=== PATIENT | male | born 1935 | race Caucasian/White ===

== ENCOUNTER → 2020-05-04 13:26 | Outpatient (CLI) | payer MEDICARE, SELFPAY ==
--- NOTE | 2020-05-04 13:45 | RAD_ITS ---
STUDY: X-RAY - LUMBAR SPINE REASON FOR EXAM: Male, 84 years old. Pain, radiating into legs TECHNIQUE: 3 view(s) of the lumbar spine were obtained. COMPARISON: None FINDINGS: No acute fracture, dislocation or osseous destruction. Osteopenia. Levoscoliosis. Exaggerated lordosis. Grade 1 spondylolisthesis at L1-2, L2-3 and L5-S1. Multilevel moderate/severe endplate spondylosis. Multilevel moderate/severe disc height loss. Anterior osteophytes. Multilevel moderate/severe facet arthrosis. Vascular calcifications. Constipation. RAD/Lumbar Spine 2 or 3 Views IMPRESSION: Lumbar spine acutely intact Moderate/severe osteoarthritic with levoscoliosis and exaggerated lordosis Multilevel grade 1 spondylolisthesis Electronically Signed: Trevor Berumen DO at 11:13 EST Tel , Service support ,
== END ==
PROVIDERS: PCP Internal Medicine; Referring Provider Anesthesiology Pain Medicine; Visit Provider Anesthesiology Pain Medicine
DX: M54.5 Low back pain (principal); M79.606 Pain in leg, unspecified
CPT/HCPCS: 72100

== ENCOUNTER 2021-03-12 18:25 | Inpatient (IN) | payer MEDICARE, SELFPAY ==
[2021-03-12 18:25] VITALS: BP 122/70; PULSE 78; RESP 18; TEMP 36.1; O2SAT 88
[2021-03-12 18:27] VITALS: BP 122/70; PULSE 78; RESP 18; TEMP 36.1; O2SAT 88; BMI 34.9
[2021-03-12 18:49] VITALS: BP 131/71; PULSE 75; RESP 25; O2SAT 94
--- NOTE | 2021-03-12 18:58 | RAD_ITS ---
INDICATION: cough EXAMINATION/TECHNIQUE: X-RAY - XR Chest 1 View COMPARISON: None. FINDINGS: Patchy opacities in the bilateral lungs. Tortuous and calcified thoracic aorta. The heart is mildly enlarged. No pleural effusion or pneumothorax. Degenerative changes of the thoracic spine. RAD/Chest 1 View (Portable) IMPRESSION: Patchy bilateral opacities concerning for infection and/or edema. Electronically Signed: Lux Jorge MD at 20:13 EDT Tel , Service support ,
--- NOTE | 2021-03-12 18:59 | EKG12_ITS ---
Test Reason : DYSRHYTHMIA Blood Pressure : / mmHG Vent. Rate : 077 BPM Atrial Rate : 077 BPM P-R Int : 152 ms QRS Dur : 100 ms QT Int : 396 ms P-R-T Axes : 031 -42 016 degrees QTc Int : 448 ms Normal sinus rhythm Left axis deviation Abnormal ECG Confirmed by BELEM SANTANA, MARIO ([id number]), clinical editor GM SMITH ([id number]) on 03/16/2021 8:39:27 AM Referred By: CAMERON Confirmed By:MARIO PATRICIA MD
--- NOTE | 2021-03-12 19:00 | EX.ED.DYSGE1 ---
HPI History of Present Illness Chief Complaint: Weakness Detail of Chief Complaint: Weakness that started 10 days ago Informant: patient Narrative Narrative: Patient presents to the emergency department complaint of generalized weakness. Patient states that is significant other that lives with them had Covid recently. Patient complains of a cough and some diarrhea that he had several days ago that is now resolved. Patient has no energy. Patient's had intermittent fevers. He has some mild shortness of breath. He denies any chest pain. Prior similar symptoms: No PFSH [facility] Medical History (Updated 03/12/21 @ 21:[address] Michelle Hayes, DO) Hypertension Allergy/AdvReac Type Severity Reaction Status Date / Time No Known Allergies Allergy Verified 03/12/21 18:32 Social History Smoking Status: Former smoker ROS ROS ED Constitutional Constitutional ED: Reports systems reviewed and no addt'l complaints, except as documented; Denies body ache(s), change in weight or chills Eyes Eyes: Denies acute decrease in peripheral vision, change in vision, double vision or loss of vision ENT ENT ED: Reports none; Denies ear pain, lip swelling, loss taste/smell, neck pain, otalgia or sore throat Cardiovascular Cardiovascular: Reports none; Denies abdominal pain, chest pain with activity, leg edema, lightheadedness, palpitations, rapid heart rate or syncope Respiratory/Chest Respiratory/Chest: Reports none and cough; Denies change in mental status, dry cough, dyspnea, hemoptysis, shortness of breath at rest or shortness of breath with exertion Gastrointestinal Gastrointestinal: Reports none and diarrhea; Denies abdominal pain, change in stool character, hematemesis, hematochezia, melena, rectal bleeding or vomiting Genitourinary Genitourinary ED: Reports none; Denies abdominal discomfort, anuria, dysuria, genital pain or polyuria Musculoskeletal Musculoskeletal: Reports none; Denies arthralgias, back pain, difficulty walking, extremity pain, muscle weakness or myalgias Integumentary Reports none; Denies abscess or rash Neurologic Neurologic: Reports none and weakness; Denies abnormal gait, confusion, focal weakness, frequent falls, headache(s), loss of vision, numbness, paresthesias, radicular pain or vertigo Psychiatric Psychiatric: Reports systems reviewed and no addt'l complaints, except as documented and none; Denies behavioral changes, confusion, difficulty concentrating, hallucinations, suicidal ideation, tactile hallucinations or visual hallucinations Endocrine Endocrinology: Denies none, cold intolerance, excessive sweating, fatigue or heat intolerance Hematologic/Lymphatic Hematologic/Lymphatic: Reports none; Denies anemia, easy bleeding or easy bruising Allergic/Immunologic Allergic/Immunologic ED: Denies as per HPI, none, lip swelling, mouth swelling, throat swelling, tongue swelling or hives EXAM Physical Exam Const Vital Signs: 03/12/21 18:25 03/12/21 18:27 03/12/21 18:44 Temperature 97.0 F L 97.0 F L Temperature Source Temporal Temporal Pulse Rate 78 78 Respiratory Rate 18 18 Respiratory Pattern Tachypnea Blood Pressure 122/70 H 122/70 H Blood Pressure Mean 87 87 Pulse Ox 88 88 Oxygen Delivery Method Room Air Room Air Oxygen Flow Rate (L/min) 03/12/21 18:49 03/12/21 20:15 03/12/21 22:00 Temperature 98.9 F 99.4 F H Temperature Source Oral Oral Pulse Rate 75 80 82 Respiratory Rate 25 H 20 H 18 Respiratory Pattern Blood Pressure 131/71 H 142/77 H 126/75 H Blood Pressure Mean 91 98 92 Pulse Ox 94 95 91 Oxygen Delivery Method Nasal Cannula Nasal Cannula Nasal Cannula Oxygen Flow Rate (L/min) 4 4 4 Positive well nourished and well developed General Appearance ED: well developed and NAD HEENT Reports TM's clear and moist mucous membranes normocephalic and atraumatic; Negative for trauma or tenderness Tympanic Membrane ED: Yes TM's clear Eyes PERRL and EOMs intact bilaterally General Eye ED: Negative for pale conjunctiva or scleral icterus Neck no lymphadenopathy, supple and no JVD General: Negative for tenderness Chest Wall inspection of chest normal and palpation of chest normal Chest: Negative for tenderness Resp normal respiratory effort and clear to auscultation bilaterally Effort and Inspection: Negative for respiratory distress or pain with movement Auscultation: Negative for rhonchi, wheezes or diminished lung sounds Cardio regular rate, regular rhythm, S1 normal heart sound, S2 normal heart sound and no murmurs Peripheral Pulses: pulses 2+ throughout GI normal to inspection, nondistended, normoactive bowel sounds, soft to palpation, non-tender, non-distended and no masses Back/Spine no CVA tenderness and no thoracic nor lumbar tenderness Extremity normal to inspection General Extremety ED: Negative for edema General Extremity: Negative for edema Neuro oriented x3, CN's II-XII intact bilaterally, no sensory deficits noted and gait normal Sensorium / Orientation: awake, alert, oriented to person, oriented to place and oriented to time Motor Exam: strength 5/5 throughout and strength abnormal Psych mental status grossly normal Skin no rashes or lesions noted and no wounds MDM MDM MDM Narrative Medical decision making narrative: Established. Patient given normal saline. Patient required 2 nurses to help him get in the bed from a wheelchair. Case discussed with hospitalist will evaluate patient for admission for generalized weakness related to his COVID-19 infection. CTA was negative for PE. Patient would be comfortable with placement to rehab facility potentially as he is having a hard time caring for himself at this time. Lab Data Attestation: I reviewed the patient's lab results. Labs: Laboratory Results - last 24 hr 03/12/21 03/12/21 03/12/21 18:43 18:43 18:43 WBC 7.9 RBC 4.55 L Hgb 14.1 Hct 41.7 MCV 91.6 MCH 31.0 MCHC 33.8 RDW Std Deviation 47.6 H RDW Coeff of [place] 14.1 Plt Count 162 MPV 12.4 H Immature Gran % (Auto) 0.800 Neut % (Auto) 73.5 H Lymph % (Auto) 17.2 L [place] % (Auto) 7.8 Eos % (Auto) 0.3 Baso % (Auto) 0.4 Absolute Neuts (auto) 5.8 Absolute Lymphs (auto) 1.36 Nucleated RBC % 0 Platelet Estimate ADEQUATE RBC Morphology NORM C+C D-Dimer Quant (PE/DVT) 2.10 H* Sodium 129 L Potassium 4.4 Chloride 96 L Carbon Dioxide 29.0 Anion Gap 4 L BUN 16 Creatinine 1.04 Estim Creat Clear Calc 51.93 Est GFR (MDRD) Af Amer 87 Est GFR (MDRD) Non-Af 72 BUN/Creatinine Ratio 15.4 Glucose 104 Calcium 8.8 Troponin I High Sens 24 Radiography Chest X-Ray - ED: 1 View Diagnostic Testing: Clinical Impression(s) from Imaging Studies Chest X-Ray 03/12/21 18:58 IMPRESSION: Patchy bilateral opacities concerning for infection and/or edema. Electronically Signed: Lux Jorge MD at 20:13 EDT Tel , Service support , Chest CTA 03/12/21 20:31 IMPRESSION: 1. No pulmonary embolism 2.. Bilateral diffuse peripheral patchy groundglass airspace disease concerning for pneumonia, compatible with atypical viral pneumonia in the appropriate setting. 3. Bilateral hilar and mild mediastinal reactive adenopathy. Individualized dose optimization techniques were used for this CT. at 2146 Reported and signed by: Frank Kumar MD Electronically Signed: Frank Kumar MD at 21:44 EDT Tel , Service support , 1 view chest x-ray obtained interpreted by myself as bilateral infiltrates. Radiology in agreement. EKG Initial EKG: Attestation: I personally reviewed and interpreted this EKG as follows: Comments: Sinus rhythm with a ventricular rate of 77 bpm with no acute ST segment changes Discharge Plan Dx/Rx/DC Orders Clinical Impression: COVID-19, Weakness Disposition Disposition: Acute Care Hospital [facility]
[2021-03-12 19:10] LABS: Absolute Lymphocyte Count 1.36 X10^3/uL (0.83-4.51); Absolute Neutrophil Count 5.8 X10^3/uL (2.0-7.7); Basophil# 0.03 X10^3/uL; Basophil% 0.4 % (0-1); Eosinophil# 0.02 X10^3/uL; Eosinophils% 0.3 % (0-5); Hematocrit 41.7 % (40-54); Hemoglobin 14.1 g/dL (13.0-16.5); Lymphocyte # 1.36 X10^3/ul (0.83-4.51); Lymphocyte % 17.2 % (19-41); Mean Corp Hgb Conc 33.8 g/dL (32-36); Mean Corpuscular Volume 91.6 fL (80-94); Mean Platelet Vol. 12.4 fl (6.2-12.0); Monocyte# 0.62 X10^3/uL; Monocyte% 7.8 % (0-10); NRBC Flagged by Analyzer 0 % (0-5); Neutrophil # 5.82 X10^3/uL (2.7-7.7); Neutrophil % 73.5 % (47-70); POSITIVE MORPHOLOGY YES; Platelet Count 162 K/mm3 (150-450); RBC Distribution Width CV 14.1 % (11.6-14.6); RBC Distribution Width SD 47.6 fl (35.1-43.9); Red Blood Count 4.55 M/mm3 (4.6-6.2); White Blood Count 7.9 K/mm3 (4.4-11.0)
[2021-03-12 19:14] LABS: Differential Indicated SCAN CRITERIA MET
[2021-03-12 19:28] LABS: Anion Gap 4 (5-15); BUN 16 mg/dL (7-18); BUN/Creat Ratio 15.4 RATIO (10-20); Calcium,Total 8.8 mg/dL (8.5-10.1); Chloride 96 mmol/L (98-107); Creatinine, Serum 1.04 mg/dL (0.70-1.30); EST Glomerular Filtration Rate 72 mL/min (>60); Est Glom Filt Rate - Afr Amer 87 mL/min (>60); Estimated Creatinine Clearance 51.93 ml/min; Glucose 104 mg/dL (74-106); Potassium 4.4 mmol/L (3.5-5.1); Sodium Level 129 mmol/L (136-145); Troponin-I HS 24 pg/mL (3.0-78.0)
[2021-03-12] MEDS: 0.9% Normal Saline 1,000 ML 150 ML IV (19:36)
[2021-03-12 19:57] LABS: Platelet Estimate ADEQUATE (ADEQ); Red Cell Morphology NORM C+C NORMAL (NORM C&C)
[2021-03-12 20:15] VITALS: BP 142/77; PULSE 80; RESP 20; TEMP 37.2; O2SAT 95
--- NOTE | 2021-03-12 20:31 | CT_ITS ---
HISTORY: elevated d-dimer TECHNIQUE: Helically acquired images were obtained of the chest following 100mL Isovue-370 IV contrast as per pulmonary angiogram protocol with 3D reconstructions. A radiation dose optimization technique was used for this scan. COMPARISON: Chest radiograph on same day FINDINGS: # of images incl. paperwork: [id number] THYROID IMAGED PORTION: Unremarkable. PULMONARY ARTERIES: No pulmonary embolism. No gross arterial enlargement. AORTA/AORTIC ARCH: Mild atherosclerosis. Ascending aortic ectasia to 4.5 cm. Aortic tortuosity. No dissection. HEART/PERICARDIUM: No cardiomegaly. No significant pericardial fluid. ADENOPATHY: Subcentimeter reactive bilateral hilar lymph nodes and few scattered mediastinal lymph nodes are present. LUNG PARENCHYMA: Patchy bilateral groundglass airspace opacities throughout the lung periphery. Mild bilateral peribronchial thickening. Basilar bronchiectasis. PLEURAL EFFUSION: None. PNEUMOTHORAX: None. UPPER ABDOMEN IMAGED PORTION: Minimal hiatal hernia. Unremarkable. MUSCULOSKELETAL: No acute osseous finding. CT/CTA Chest W/WO Contrast IMPRESSION: 1. No pulmonary embolism 2.. Bilateral diffuse peripheral patchy groundglass airspace disease concerning for pneumonia, compatible with atypical viral pneumonia in the appropriate setting. 3. Bilateral hilar and mild mediastinal reactive adenopathy. Individualized dose optimization techniques were used for this CT. at 2146 Reported and signed by: Frank Kumar MD Electronically Signed: Frank Kumar MD at 21:44 EDT Tel , Service support ,
[2021-03-12 22:00] VITALS: BP 126/75; PULSE 82; RESP 18; TEMP 37.4; O2SAT 91
--- NOTE | 2021-03-12 22:07 | HP.PCM.HOS_ITS ---
[facility] - General General Date of Admission: 03/12/21 HPI Narrative FRAGOSO TATUM, is a 85 M with a significant history of CAD status post stent who presents to the emergency department with a 10-day history of progressively worsening weakness. It has been difficult for patient to walk and he has required a walker. Patient had diarrhea which had resolved. Patient has shortness of breath and cough. Patient has poor appetite. He had diarrhea which has improved. [facility] Medical History Chest pain Chronic pain Coronary artery disease Former smoker Hearing loss, left Hearing loss, right Hypertension Wears hearing aid in both ears Home Medications carvedilol 3.125 mg PO BID 03/13/21 [History Last Taken 03/11/21 23:00] Allergy/AdvReac Type Severity Reaction Status Date / Time No Known Allergies Allergy Verified 03/12/21 18:32 Family History (Updated 03/13/21 @ 03:[address] Antonio Marrero MD) Other Dementia Surgical History (Updated 03/13/21 @ 00:21 by Hilary Mckoy) History of coronary artery stent placement Social History Smoking Status: Former smoker ROS ROS Narrative Constitutional: Reports fatigue. Reports anorexia. Denies fever, chills, fatigue, and change in weight Eyes: Denies blurry vision, change in eye color, change in vision, discharge from eye(s), double vision, erythema, eye pain, loss of vision or other HEENT: Denies abnormal hearing, dysphagia, ear pain, epistaxis, headache(s), hearing loss, nasal congestion, nasal discharge, post nasal drip, sinus pressure, sore throat or other Cardiovascular: Denies chest pain or palpitations. Respiratory/Chest: Reports shortness of breath and cough. Denies wheezing Gastrointestinal: Denies abdominal pain, coffee ground emesis, constipation, diarrhea, dyspepsia, hematemesis, hematochezia, loose stools, melena, nausea, vomiting or other Genitourinary: Denies burning urination, difficulty urinating, dysuria, olga lidia turia, nocturia, urinary frequency, urinary hesitancy, urinary incontinence, urinary urgency or other Musculoskeletal: Denies arthralgias, back pain, joint pain, joint stiffness, joint swelling, myalgias, neck pain or other Neurologic: Denies abnormal gait, abnormal speech, confusion, disequilibrium, dizziness, focal weakness, headache(s), numbness, paresthesias, seizure-like activity, seizures, syncope, tingling, tremor(s) or other Psychiatric: Denies anxiety, depression, homicidal ideation, suicidal ideation or other Endocrinology: Denies change in body appearance, cold intolerance, excessive sweating, heat intolerance, polydipsia, polyuria or other Hematologic/Lymphatic: Denies anemia, easy bleeding, easy bruising, lymphadenopathy or other Integumentary: Denies rashes Allergic/Immunologic: Denies rhinitis, hives, eczema, asthma or other Vital Signs Vital Signs Vital Signs: 03/12/21 18:25 03/12/21 18:27 03/12/21 18:44 Temperature 97.0 F L 97.0 F L Temperature Source Temporal Temporal Pulse Rate 78 78 Respiratory Rate 18 18 Respiratory Pattern Tachypnea Blood Pressure 122/70 H 122/70 H Blood Pressure Mean 87 87 Pulse Ox 88 88 Oxygen Delivery Method Room Air Room Air Oxygen Flow Rate (L/min) 03/12/21 18:49 03/12/21 20:15 03/12/21 22:00 Temperature 98.9 F 99.4 F H Temperature Source Oral Oral Pulse Rate 75 80 82 Respiratory Rate 25 H 20 H 18 Respiratory Pattern Blood Pressure 131/71 H 142/77 H 126/75 H Blood Pressure Mean 91 98 92 Pulse Ox 94 95 91 Oxygen Delivery Method Nasal Cannula Nasal Cannula Nasal Cannula Oxygen Flow Rate (L/min) 4 4 4 Weight Weight: 107.27 kg Body Mass Index (BMI) 34.9 Physical Exam Narrative Physical exam: General: Well-nourished, well-developed. Head: Normocephalic, atraumatic, no tenderness Eyes: PERRLA, EOMI ENT, no trauma, moist mucous membranes, no rhinorrhea Neck: Nontender, full range of motion, no spinal tenderness, deformities, step- off CVS: Regular rate and rhythm. S1-S2 present. No murmur, gallop or rub. Respiratory : clear to auscultation bilaterally, chest wall nontender, no wheezing Abdomen: Soft, nontender, nondistended, normal bowel sounds, no masses : Deferred Back: Nontender, no CVA tenderness, no midline spinal tenderness, deformities, step-offs Extremities: Nontender full range of motion, no trauma Skin: Normal color, no trauma, abrasions Neuro: Alert, oriented, cranial nerves II through XII grossly intact. Psychiatry: Normal mood. Normal affect. Not depressed. Not anxious. Results Lab / Micro Data Result Diagrams: 03/12/21 18:43 03/12/21 18:43 Labs: Laboratory Results - last 24 hr 03/12/21 18:43: WBC 7.9, RBC 4.55 L, Hgb 14.1, Hct 41.7, MCV 91.6, MCH 31.0, MCHC 33.8, RDW Std Deviation 47.6 H, RDW Coeff of [place] 14.1, Plt Count 162, MPV 12.4 H, Immature Gran % (Auto) 0.800, Neut % (Auto) 73.5 H, Lymph % (Auto) 17.2 L, [place] % (Auto) 7.8, Eos % (Auto) 0.3, Baso % (Auto) 0.4, Absolute Neuts (auto) 5.8, Absolute Lymphs (auto) 1.36, Nucleated RBC % 0, Platelet Estimate ADEQUATE, RBC Morphology NORM C+C 03/12/21 18:43: D-Dimer Quant (PE/DVT) 2.10 H* 03/12/21 18:43: Sodium 129 L, Potassium 4.4, Chloride 96 L, Carbon Dioxide 29.0, Anion Gap 4 L, BUN 16, Creatinine 1.04, Estim Creat Clear Calc 51.93, Est GFR (MDRD) Af Amer 87, Est GFR (MDRD) Non-Af 72, BUN/Creatinine Ratio 15.4, Glucose 104, Calcium 8.8, Troponin I High Sens 24 Micro: Microbiology 03/12/21 19:10 Nasal Secretion SARS-CoV-2 Antigen (Rapid) - Final SARS-CoV-2 (COVID 19) Radiology Impression Chest X-Ray 03/12/21 18:58 IMPRESSION: Patchy bilateral opacities concerning for infection and/or edema. Electronically Signed: Lux Jorge MD at 20:13 EDT Tel , Service support , Chest CTA 03/12/21 20:31 IMPRESSION: 1. No pulmonary embolism 2.. Bilateral diffuse peripheral patchy groundglass airspace disease concerning for pneumonia, compatible with atypical viral pneumonia in the appropriate setting. 3. Bilateral hilar and mild mediastinal reactive adenopathy. Individualized dose optimization techniques were used for this CT. at 2146 Reported and signed by: Frank Kumar MD Electronically Signed: Frank Kumar MD at 21:44 EDT Tel , Service support , Assessment & Plan Assessment/Plan (1) COVID-19: (2) Weakness: (3) Pneumonia due to COVID-19 virus: PLAN: Acute hypoxemic respiratory failure secondary to SARS- COV 2 Saturation of 88% on room air requiring supplemental oxygen. Will continue supplemental oxygen. Reportedly her oxygen chest x-ray image and CTA image was independently interpreted and I agree with radiologist interpretation above. D-dimer was elevated at 2.10. Positive rapid Covid antigen test. Decadron ordered. AST mildly elevated at 65. ALT is normal. Direct bili and total bili is elevated. No previous LFTs to compare with. Albumin is low at 2.9. Patient is outside window for remdesivir. Tylenol for fever Tessalon Perles as needed. Debility secondary to Covid PT and OT to work with patient. automation and controls manager consult for disposition. 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 Gentle IV hydration. Fluid restriction ordered. Trend BMP. Hypertension Blood pressure is stable in regard to his age. Carvedilol continued.. Trend blood pressure and adjust blood pressure medications. Due to prophylaxis: SCD ordered. Charges/Coding Visit Charges OBSV E&M: 00071 Initial observation care L3
[2021-03-12 23:45] LABS: AST(SGOT) 65 U/L (15-37); Alanine Aminotransfer ALT/SGPT 36 U/L (16-61); Albumin, Serum 2.9 g/dL (3.2-5.0); Alkaline Phosphatase 48 U/L (45-117); Bilirubin, Direct 0.51 mg/dL (0.00-0.30); Globulin 4.9 g/dL (2.2-4.2); Protein, Total 7.8 g/dL (6.4-8.2)
[2021-03-13] VITALS (10 sets, daily range): BP systolic 122–149; BP diastolic 67–81; PULSE 72–85; RESP 16–20; TEMP 36.2–37.6; O2SAT 92–95; BMI 34.7
[2021-03-13] MEDS: 0.9% Normal Saline 1,000 ML 75 ML IV (01:14)
[2021-03-13] MEDS: dexAMETHasone 2 MG TABLET 6 MG PO ×2 (01:20→09:58)
[2021-03-13 08:23] LABS: Anion Gap 7 (5-15); BUN 11 mg/dL (7-18); BUN/Creat Ratio 12.2 RATIO (10-20); Chloride 100 mmol/L (98-107); EST Glomerular Filtration Rate 85 mL/min (>60); Est Glom Filt Rate - Afr Amer 103 mL/min (>60); Estimated Creatinine Clearance 60.01 ml/min; Glucose 84 mg/dL (74-106); Potassium 3.8 mmol/L (3.5-5.1); Sodium Level 135 mmol/L (136-145)
--- NOTE | 2021-03-13 09:54 | PCS.PANDOC ---
PANDEMIC DOCUMENTATION INITIATED: Date: 01/11/2021 Time: 190
[2021-03-13] MEDS: Enoxaparin 30 MG/0.3 ML Syringe SC ×2 (09:58→23:06)
[2021-03-13] MEDS: Carvedilol 3.125 MG TABLET PO ×2 (09:58→23:06)
--- NOTE | 2021-03-13 11:48 | PCM.PN.HOSP ---
Subjective Subjective Feels about the same, oxygen requirement is from 5 L to 3 L. Objective Data Objective Data Vital Signs: Vital Signs Temp Pulse Resp BP Pulse Ox 97.2 F L 78 18 122/71 H 92 03/13/21 09:52 03/13/21 09:52 03/13/21 09:52 03/13/21 09:52 03/13/21 11:19 Oxygen Flow Rate (L/min) 3 Oxygen Delivery Method Nasal Cannula Weight: 235 lb 0.204 oz Body Mass Index (BMI) 34.7 Intake & Output: Intake and Output for Last 24 Hours 03/12/21 03/13/21 03/14/21 03:59 03:59 03:59 Intake Total 860 / 860 Output Total 425 / 425 600 / 600 Balance 435 / 435 -600 / -600 Lab / Micro Data Result Diagrams: 03/12/21 18:43 03/13/21 06:45 Labs: Laboratory Results - last 24 hr 03/12/21 18:43: WBC 7.9, RBC 4.55 L, Hgb 14.1, Hct 41.7, MCV 91.6, MCH 31.0, MCHC 33.8, RDW Std Deviation 47.6 H, RDW Coeff of [place] 14.1, Plt Count 162, MPV 12.4 H, Immature Gran % (Auto) 0.800, Neut % (Auto) 73.5 H, Lymph % (Auto) 17.2 L, [place] % (Auto) 7.8, Eos % (Auto) 0.3, Baso % (Auto) 0.4, Absolute Neuts (auto) 5.8, Absolute Lymphs (auto) 1.36, Nucleated RBC % 0, Platelet Estimate ADEQUATE, RBC Morphology NORM C+C 03/12/21 18:43: D-Dimer Quant (PE/DVT) 2.10 H* 03/12/21 18:43: Sodium 129 L, Potassium 4.4, Chloride 96 L, Carbon Dioxide 29.0, Anion Gap 4 L, BUN 16, Creatinine 1.04, Estim Creat Clear Calc 51.93, Est GFR (MDRD) Af Amer 87, Est GFR (MDRD) Non-Af 72, BUN/Creatinine Ratio 15.4, Glucose 104, Calcium 8.8, Troponin I High Sens 24 03/12/21 18:43: Total Bilirubin 1.30 H, Direct Bilirubin 0.51 H, AST 65 H, ALT 36, Alkaline Phosphatase 48, Total Protein 7.8, Albumin 2.9 L, Globulin 4.9 H 03/13/21 06:45: Sodium 135 L, Potassium 3.8, Chloride 100, Carbon Dioxide 28.0, Anion Gap 7, BUN 11, Creatinine 0.90, Estim Creat Clear Calc 60.01, Est GFR (MDRD) Af Amer 103, Est GFR (MDRD) Non-Af 85, BUN/Creatinine Ratio 12.2, Glucose 84, Calcium 8.0 L Micro: Microbiology 03/12/21 19:10 Nasal Secretion SARS-CoV-2 Antigen (Rapid) - Final SARS-CoV-2 (COVID 19) Radiography Diagnostic Testing: Radiology Impression Chest X-Ray 03/12/21 18:58 IMPRESSION: Patchy bilateral opacities concerning for infection and/or edema. Electronically Signed: Lux Jorge MD at 20:13 EDT Tel , Service support , Chest CTA 03/12/21 20:31 IMPRESSION: 1. No pulmonary embolism 2.. Bilateral diffuse peripheral patchy groundglass airspace disease concerning for pneumonia, compatible with atypical viral pneumonia in the appropriate setting. 3. Bilateral hilar and mild mediastinal reactive adenopathy. Individualized dose optimization techniques were used for this CT. at 2146 Reported and signed by: Frank Kumar MD Electronically Signed: Frank Kumar MD at 21:44 EDT Tel , Service support , Physical Exam Const alert, oriented x3 and no apparent distress General Appearance: cooperative HEENT normocephalic and moist oral mucous membranes Eyes PERRL, EOMs intact bilaterally and conjunctivae normal Neck supple and no JVD Resp normal respiratory effort, no retractions, no use of accessory muscles and clear to auscultation bilaterally Auscultation: Negative for crackles, rales, rhonchi or wheezes Cardio regular rate, regular rhythm, S1 normal heart sound, S2 normal heart sound and no murmurs GI soft to palpation, non-tender and non-distended; Negative for hepatosplenomegaly Extremity no clubbing, cyanosis or edema Skin no rashes or lesions noted Neuro no focal motor deficits and no sensory deficits noted Psych affect normal Appearance: appropriate Assessment & Plan Assessment/Plan (1) COVID-19: (2) Weakness: (3) Pneumonia due to COVID-19 virus: PLAN: 1. Acute hypoxic respiratory failure secondary to COVID-19 pneumonia/generalized weakness -Symptoms started 11 days ago therefore he is also under baricitinib and remdesivir continue with Decadron -CTA was negative for PE -PT/OT -continue with pulmonary toileting -Quarantine will be completed 03/22/2021 2. HTN -Blood pressure stable -Continue with Coreg DVT: Lovenox Charges/Coding Visit Charges Inpatient E&M: 64036 Subs Hosp L2
--- NOTE | 2021-03-13 14:55 | CASEMGMT ---
RENE BLAIR Assessment: Face to Face with pt for initial transition planning/care coordination assessment. RENE BLAIR introduced self and role at [facility], pt voices understanding and consents to assessment. Pt is A/O x4 and answers all questions appropriately at this time. Pt sitting up in chair eating dinner with O2 on in no distress. Care providers, pharmacy, and demographics verified/updated. Admitting Dx: Debility from COVID PCP:William Specialists:Pt denies [facility]erred [facility]acy[facility] Insurance: [facility] Prescription Benefit: yes LW/HPOA: Pt states he has a LW/DPOA. States his DPOA is Herman Casas. LNOK: Sivan Mcdonald, friend; Herman Augusto, Sivan's granddtr Living Arrangements: Pt lives with sig other in a single story house with two steps to enter. Pt reports he was I in ADL's up to 10 days ago. His friend has had to assist in the recent days. Transportation: Pt drives self and denies concerns with transportation. DME/HHC/SNF: Pt has a FWW and cane at home. Pt states he started using his cane approx two weeks ago and then the walker a week ago. He states he has poor balance. Pt denies having any hx of HHC or SNF stays. Pt states he was first tested for COVID at [facility]. He states his friend is covid positive and he has been quarantining with her. Pt has family who can bring groceries and supplies. Discussed the possibility of needing O2 upon dc. Provided pt with a verbal list of local in network DME companies, pt chose [employer]. Pt is unsure his disposition at this time. Therapy is recommending additional therapy. Pt states he will see how he does. RENE CM to follow. Pt states no further concerns/needs. CM to follow. Advised pt to ask CM if any further question/concerns/needs arise, voices understanding. Pt Goal: Home with HHC therapy vs SNF Plan: Home with HHC therapy vs SNF
[2021-03-13] MEDS: 0.9% Saline Lock 10 ML Syringe IV (14:56)
--- NOTE | 2021-03-13 17:21 | NURSING ---
spoke with Sivan pt significant other and updated. Sivan states she is leaving early monday morning for vacation so it is best to reach her at her cell phone number that is listed/verified with her in demographics sheet.
[2021-03-14] VITALS (15 sets, daily range): BP systolic 101–148; BP diastolic 64–92; PULSE 64–97; RESP 16–17; TEMP 36.6; O2SAT 87–96
[2021-03-14] MEDS: Acetaminophen 325 MG Tablet 650 MG PO ×2 (09:46→15:22)
[2021-03-14] MEDS: Carvedilol 3.125 MG TABLET PO ×2 (09:47→21:27)
[2021-03-14] MEDS: dexAMETHasone 2 MG TABLET 6 MG PO (09:47)
[2021-03-14] MEDS: Enoxaparin 30 MG/0.3 ML Syringe SC ×2 (09:47→21:26)
--- NOTE | 2021-03-14 10:44 | NURSING ---
pt spo2 dropped down to 86-88% on 4L nc while pt was conversing on his cellphone to his significant other. high flow tubing/humidifier placed on oxygen and turned up to 5L NC. pt ends phone call with significant other. much discussion/education/teachback provided regarding POC. pt conversant with said nurse while on 5L high flow and spo2 ranges from 91-92%.
--- NOTE | 2021-03-14 13:15 | PCM.PN.HOSP ---
Subjective Subjective Feels a bit better today. But he is on 5 L which is up from 3 that he was yesterday. Objective Data Objective Data Vital Signs: Vital Signs Temp Pulse Resp BP Pulse Ox 97.9 F 90 16 101/64 91 03/14/21 09:39 03/14/21 12:11 03/14/21 09:39 03/14/21 09:39 03/14/21 12:11 Oxygen Flow Rate (L/min) 5 Oxygen Delivery Method Nasal Cannula Weight: 235 lb 0.204 oz Body Mass Index (BMI) 34.7 Intake & Output: Intake and Output for Last 24 Hours 03/13/21 03/14/21 03/15/21 03:59 03:59 03:59 Intake Total 860 / 860 1000 / 1000 700 / 700 Output Total 425 / 425 600 / 600 600 / 600 Balance 435 / 435 400 / 400 100 / 100 Lab / Micro Data Result Diagrams: 03/12/21 18:43 03/13/21 06:45 Micro: Microbiology 03/12/21 19:10 Nasal Secretion SARS-CoV-2 Antigen (Rapid) - Final SARS-CoV-2 (COVID 19) Physical Exam Const alert, oriented x3 and no apparent distress General Appearance: cooperative HEENT normocephalic and moist oral mucous membranes Eyes PERRL, EOMs intact bilaterally and conjunctivae normal Neck supple and no JVD Resp normal respiratory effort, no retractions, no use of accessory muscles and clear to auscultation bilaterally Auscultation: crackles; Negative for rales, rhonchi or wheezes Cardio regular rate, regular rhythm, S1 normal heart sound, S2 normal heart sound and no murmurs GI soft to palpation, non-tender and non-distended; Negative for hepatosplenomegaly Extremity no clubbing, cyanosis or edema Skin no rashes or lesions noted Neuro no focal motor deficits and no sensory deficits noted Psych affect normal Appearance: appropriate Assessment & Plan Assessment/Plan (1) COVID-19: (2) Weakness: (3) Pneumonia due to COVID-19 virus: PLAN: 1. Acute hypoxic respiratory failure secondary to COVID-19 pneumonia/generalized weakness -Symptoms started 11 days prior to admission, outside the window for baricitinib and remdesivir. -Continue with Decadron -CTA was negative for PE -PT/OT -continue with pulmonary toileting -Quarantine will be completed 03/22/2021 -We will give a dose of Lasix today. 2. HTN -Blood pressure stable -Continue with Coreg DVT: Lovenox Charges/Coding Visit Charges Inpatient E&M: 91186 Subs Hosp L2
[2021-03-14] MEDS: Furosemide 40 MG/4 ML Vial IV (15:22)
[2021-03-14] MEDS: 0.9% Saline Lock 10 ML Syringe IV (15:23)
[2021-03-15] VITALS (12 sets, daily range): BP systolic 122–149; BP diastolic 71–91; PULSE 74–90; RESP 16–18; TEMP 36.1–36.8; O2SAT 87–96
[2021-03-15 06:08] LABS: Absolute Lymphocyte Count 0.95 X10^3/uL (0.83-4.51); Basophil# 0.02 X10^3/uL; Basophil% 0.2 % (0-1); Hematocrit 37.9 % (40-54); Hemoglobin 12.5 g/dL (13.0-16.5); Lymphocyte # 0.95 X10^3/ul (0.83-4.51); Lymphocyte % 9.9 % (19-41); Mean Corpuscular Hgb 30.6 pg (27.0-32.0); Mean Corpuscular Volume 92.7 fL (80-94); Mean Platelet Vol. 11.9 fl (6.2-12.0); Monocyte# 0.48 X10^3/uL; NRBC Flagged by Analyzer 0 % (0-5); Neutrophil # 8.04 X10^3/uL (2.7-7.7); POSITIVE MORPHOLOGY YES; Platelet Count 220 K/mm3 (150-450); RBC Distribution Width SD 47.9 fl (35.1-43.9); Red Blood Count 4.09 M/mm3 (4.6-6.2); White Blood Count 9.6 K/mm3 (4.4-11.0)
[2021-03-15 06:25] LABS: Differential Indicated SCAN CRITERIA MET
[2021-03-15 06:46] LABS: Anion Gap 7 (5-15); BUN 21 mg/dL (7-18); BUN/Creat Ratio 27.2 RATIO (10-20); Calcium,Total 8.6 mg/dL (8.5-10.1); Chloride 102 mmol/L (98-107); Creatinine, Serum 0.77 mg/dL (0.70-1.30); EST Glomerular Filtration Rate 102 mL/min (>60); Est Glom Filt Rate - Afr Amer 123 mL/min (>60); Estimated Creatinine Clearance 54.01 ml/min; Glucose 114 mg/dL (74-106); Potassium 3.9 mmol/L (3.5-5.1); Sodium Level 139 mmol/L (136-145)
--- NOTE | 2021-03-15 09:13 | NURSING ---
pt recovered after activity in less than 5 minutes of walking on 8L of NC high flow oxygen to 94% while at rest in the chair.
[2021-03-15] MEDS: Enoxaparin 30 MG/0.3 ML Syringe SC ×2 (09:20→22:00)
[2021-03-15] MEDS: dexAMETHasone 2 MG TABLET 6 MG PO (09:21)
[2021-03-15] MEDS: Carvedilol 3.125 MG TABLET PO ×2 (09:21→22:00)
[2021-03-15] MEDS: Acetaminophen 325 MG Tablet 650 MG PO (11:05)
--- NOTE | 2021-03-15 13:29 | CASEMGMT ---
Addendum entered by Cynthia Lezama 03/15/21 13:56: Received tc from [facility], they are able to accept pt for care. Original Note: RN CM in to pt room. Pt states he feels that he will be able to go home with C vs Rehab facility. He states Sivan's dtr and son are able to pick him up as well as provide assistance to him. Patient was provided a list of [facility] providers including quality and resource use data and consistent with the patient?s preferred geographic region, medical needs, and insurance network. The patient?s preferred provider is [facility]. TC to Yaneth at [facility], referral given. She will call back to make aware if able to accept pt or not.
--- NOTE | 2021-03-15 15:31 | PN.HOSP_ITS ---
Subjective Subjective Patient seen and examined. HE feels well today and has no complaints. Review of systems otherwise negative. He was on 8L of oxygen at time of review. He was weaned down to 4L of oxygen. Review of systems otherwise negative. Objective Data Objective Data Vital Signs: Vital Signs Temp Pulse Resp BP Pulse Ox 97.9 F 78 16 122/77 H 95 03/15/21 14:49 03/15/21 14:49 03/15/21 14:49 03/15/21 14:49 03/15/21 14:49 Oxygen Flow Rate (L/min) [At 3 REST with Oxygen] Oxygen Flow Rate (L/min) [ 8 AMBULATING with Oxygen #3] Oxygen Flow Rate (L/min) [ 7 AMBULATING with Oxygen #2] Oxygen Flow Rate (L/min) [ 3 AMBULATING with Oxygen #1] Oxygen Flow Rate (L/min) 4 Oxygen Delivery Method Nasal Cannula Weight: 235 lb 0.204 oz Body Mass Index (BMI) 34.7 Intake & Output: Intake and Output for Last 24 Hours 03/13/21 03/14/21 03/15/21 23:59 23:59 23:59 Intake Total 1860 / 1860 700 / 700 400 / 400 Output Total 1025 / 1025 700 / 700 625 / 625 Balance 835 / 835 0 / 0 -225 / -225 Lab / Micro Data Result Diagrams: 03/15/21 05:22 03/15/21 05:22 Labs: Laboratory Results - last 24 hr 03/15/21 05:22: WBC 9.6, RBC 4.09 L, Hgb 12.5 L, Hct 37.9 L, MCV 92.7, MCH 30.6, MCHC 33.0, RDW Std Deviation 47.9 H, RDW Coeff of [place] 14.0, Plt Count 220, MPV 11.9, Immature Gran % (Auto) 0.900, Neut % (Auto) 84.0 H, Lymph % (Auto) 9.9 L, [place] % (Auto) 5.0, Eos % (Auto) 0.0, Baso % (Auto) 0.2, Absolute Neuts (auto) 8.0 H, Absolute Lymphs (auto) 0.95, Nucleated RBC % 0 03/15/21 05:22: Sodium 139, Potassium 3.9, Chloride 102, Carbon Dioxide 30.0, Anion Gap 7, BUN 21 H, Creatinine 0.77, Estim Creat Clear Calc 54.01, Est GFR (MDRD) Af Amer 123, Est GFR (MDRD) Non-Af 102, BUN/Creatinine Ratio 27.2 H, Glucose 114 H, Calcium 8.6 Micro: Microbiology 03/12/21 19:10 Nasal Secretion SARS-CoV-2 Antigen (Rapid) - Final SARS-CoV-2 (COVID 19) Physical Exam Const alert, oriented x3 and no apparent distress Exam Limitations: no limitations HEENT head/scalp atraumatic and moist oral mucous membranes Head and Scalp: normocephalic Eyes PERRL, EOMs intact bilaterally and conjunctivae normal Neck no lymphadenopathy Resp normal respiratory effort, no retractions, no use of accessory muscles and clear to auscultation bilaterally Resp Narrative: on 4L of oxygen Cardio regular rate, regular rhythm, S2 normal heart sound and no murmurs GI normal to inspection, nondistended, normoactive bowel sounds, soft to palpation, non-tender and non-distended Extremity normal to inspection, full ROM and no clubbing, cyanosis or edema Peripheral Pulses: Yes pulses 2+ throughout Skin no rashes or lesions noted Neuro oriented x3, CN's II-XII intact bilaterally and moves all extremities Sensorium / Orientation: awake and alert Psych affect normal Assessment & Plan Assessment/Plan (1) COVID-19: (2) Acute respiratory failure with hypoxia: PLAN: #Acute hypoxic respiratory failure due to COVID 19 pneumonia * was on 8L this morning, but this was weaned down to 4L of oxygen. * titrate oxygen to maintain sats >90% * breathing treatment with bronchodilators. * he required 8L of oxygen with ambulation * wean down oxygen as tolerated. * on PO decadron * #HYpertension: on carvedilol 3.125mg bid. DVT prophylaxis: lovenox 30mg bid. Disposition: for likely DC tomorrow. Charges/Coding Visit Charges Inpatient E&M: 20213 Subs Hosp L2
[2021-03-16] VITALS (8 sets, daily range): BP systolic 112–147; BP diastolic 66–93; PULSE 68–86; RESP 18; TEMP 35.9–36.3; O2SAT 87–95
[2021-03-16 06:26] LABS: Absolute Lymphocyte Count 1.35 X10^3/uL (0.83-4.51); Absolute Neutrophil Count 6.8 X10^3/uL (2.0-7.7); Basophil# 0.03 X10^3/uL; Basophil% 0.3 % (0-1); Eosinophil# 0.01 X10^3/uL; Eosinophils% 0.1 % (0-5); Hematocrit 39.2 % (40-54); Hemoglobin 13.1 g/dL (13.0-16.5); Lymphocyte # 1.35 X10^3/ul (0.83-4.51); Mean Corp Hgb Conc 33.4 g/dL (32-36); Mean Corpuscular Volume 92.7 fL (80-94); Mean Platelet Vol. 11.5 fl (6.2-12.0); Monocyte# 0.72 X10^3/uL; NRBC Flagged by Analyzer 0 % (0-5); Neutrophil # 6.78 X10^3/uL (2.7-7.7); Neutrophil % 75.5 % (47-70); POSITIVE MORPHOLOGY YES; Platelet Count 265 K/mm3 (150-450); RBC Distribution Width CV 13.8 % (11.6-14.6); RBC Distribution Width SD 46.7 fl (35.1-43.9); Red Blood Count 4.23 M/mm3 (4.6-6.2)
[2021-03-16 06:28] LABS: Differential Indicated SCAN CRITERIA MET
[2021-03-16 06:58] LABS: Anion Gap 6 (5-15); BUN 19 mg/dL (7-18); BUN/Creat Ratio 24.3 RATIO (10-20); Calcium,Total 8.6 mg/dL (8.5-10.1); Chloride 102 mmol/L (98-107); Creatinine, Serum 0.78 mg/dL (0.70-1.30); EST Glomerular Filtration Rate 100 mL/min (>60); Est Glom Filt Rate - Afr Amer 121 mL/min (>60); Estimated Creatinine Clearance 54.01 ml/min; Glucose 88 mg/dL (74-106); Potassium 4.2 mmol/L (3.5-5.1); Sodium Level 135 mmol/L (136-145)
[2021-03-16] MEDS: dexAMETHasone 2 MG TABLET 6 MG PO (09:23)
[2021-03-16] MEDS: Enoxaparin 30 MG/0.3 ML Syringe SC (09:23)
[2021-03-16] MEDS: Carvedilol 3.125 MG TABLET PO (09:24)
--- NOTE | 2021-03-16 11:05 | PCM.DC.SUM ---
Providers Date of Admission: 03/13/21 Primary Care Physician: Dr. Jn Thomas MD Reason For Visit: DEBILITY FROM COVID Diagnosis Discharge Diagnosis (1) COVID-19: Status: Acute Code(s): U07.1 - COVID-19 (2) Acute respiratory failure with hypoxia: Status: Acute Code(s): J96.01 - Acute respiratory failure with hypoxia Medications at Discharge Home Medications carvedilol 3.125 mg PO BID 03/13/21 aspirin [Ecotrin Low Strength] 81 mg PO DAILY 03/15/21 coenzyme Q10 [CoQ-10] 100 mg PO DAILY 03/15/21 multivitamin 1 tab PO DAILY 03/15/21 pravastatin 20 mg PO QHS 03/15/21 apixaban [Eliquis] 2.5 mg PO BID #28 tab 03/16/21 dexamethasone [Decadron] 6 mg PO DAILY #5 tab 03/16/21 Hospital Course Operations None Procedures None Summary of Care Provided Minutes Spent on Discharge: 45 Hospital Course: Patient is an 85-year-old male with a past medical history as outlined was admitted via the ED on 03/12/2021 with a 10-day history of progressively worsening weakness with associated diarrhea, shortness of breath and cough as well as decreased appetite. On admission, he tested positive for Covid. He was saturating at 88% on room air and required supplemental oxygen. Patient was outside window for remdesivir so was started on Decadron. He was admitted and managed for acute hypoxic respiratory failure due to COVID-19 pneumonia and debility due to Covid. PT OT was consulted. Patient was placed on oxygen. His shortness of breath gradually improved to the point where he could be on room air without oxygen but with ambulation, needed 2 L of oxygen to maintain saturation above 90%. Patient remained stable and was discharged home on 03/16/2021 with 2 L of oxygen which he qualified for with ambulatory pulse ox. He was discharged on p.o. Decadron 6 mg daily to complete a 10-day course. Since patient sent started on 03/02/2021, he is to be in isolation till 03/22/2021 and is to follow-up with his primary care doctor in 1 to 2 weeks. Due to his elevated D dimer, with PE being ruled out with negative CTA, he was discharged on 2.5mg bid of eliquis for 2 weeks as thromboprophylaxis. Patient was seen and examined prior to discharge. He had no complaints and felt much better than when he came in. Review of systems otherwise negative. Labs and vitals reviewed. Home medication reviewed and reconciled. Physical Exam Const alert, oriented x3 and no apparent distress General Appearance: cooperative Exam Limitations: no limitations HEENT normocephalic, head/scalp atraumatic and moist oral mucous membranes Eyes PERRL, EOMs intact bilaterally and conjunctivae normal Neck no lymphadenopathy, supple and no JVD Resp normal respiratory effort, no retractions, no use of accessory muscles and clear to auscultation bilaterally Resp Narrative: on 4L of oxygen Auscultation: crackles; Negative for rales, rhonchi or wheezes Cardio regular rate, regular rhythm, S1 normal heart sound, S2 normal heart sound and no murmurs GI normal to inspection, nondistended, normoactive bowel sounds, soft to palpation, non-tender and non-distended; Negative for hepatosplenomegaly Extremity normal to inspection, full ROM and no clubbing, cyanosis or edema Skin no rashes or lesions noted Neuro oriented x3, CN's II-XII intact bilaterally, moves all extremities, no focal motor deficits and no sensory deficits noted Sensorium / Orientation: awake and alert Psych affect normal Appearance: appropriate Weight / BMI Weight Weight: 235 lb 0.204 oz Body Mass Index (BMI) 34.7 ABG / Lab / Microbiology Data Result Diagrams: 03/16/21 06:14 03/16/21 06:14 Laboratory: Laboratory Results - last 24 hr 03/16/21 06:14: WBC 9.0, RBC 4.23 L, Hgb 13.1, Hct 39.2 L, MCV 92.7, MCH 31.0, MCHC 33.4, RDW Std Deviation 46.7 H, RDW Coeff of [place] 13.8, Plt Count 265, MPV 11.5, Immature Gran % (Auto) 1.100 H, Neut % (Auto) 75.5 H, Lymph % (Auto) 15.0 L, [place] % (Auto) 8.0, Eos % (Auto) 0.1, Baso % (Auto) 0.3, Absolute Neuts (auto) 6.8, Absolute Lymphs (auto) 1.35, Nucleated RBC % 0 10/19/21 06:14: Sodium 135 L, Potassium 4.2, Chloride 102, Carbon Dioxide 27.0, Anion Gap 6, BUN 19 H, Creatinine 0.78, Estim Creat Clear Calc 54.01, Est GFR (MDRD) Af Amer 121, Est GFR (MDRD) Non-Af 100, BUN/Creatinine Ratio 24.3 H, Glucose 88, Calcium 8.6 Microbiology: Microbiology 03/12/21 19:10 Nasal Secretion SARS-CoV-2 Antigen (Rapid) - Final SARS-CoV-2 (COVID 19) D/C Instructions Discharge Diet: Low fat / Low cholesterol Discharge Activity: Return to Normal Activity Weight Bearing Status: Weight bearing as tolerated Call your doctor if you observe: Fever of 101 or Higher, Shortness of breath, Swelling in the ankles and Increased palpitations (irregular heartbeat) Meaningful Use Info Meaningful Use Diagnoses (Choose all that apply): None applicable Discharge Plan Admission Admit Date/Time: 03/13/21 11:13 Primary Reason for Your Visit: acute hypoxic respiratory failure due to COVID 19 pneumonia Attending Provider: Deanna Watters Primary Care Provider: Jn Thoams Instructions Patient Instructions: Coronavirus Disease 2019 (COVID-19): Caring for Yourself or Others, COVID-19: Lying in a Prone Position (Proning), Preventing the Spread of Infection Understanding Isolation Procedures, Disinfecting Your Home of COVID-19, How COVID-19 Spreads Additional Instructions / Restrictions: remain in self isolation till 03/22/2021. use oxygen 2L for shortness of breath as needed Discharge Orders/Prescriptions Prescriptions: New dexamethasone [Decadron] 6 mg tablet 6 mg PO DAILY Qty: 5 RF: 0 Eliquis 2.5 mg tablet 2.5 mg PO BID Qty: 28 RF: 0 Continued carvedilol 3.125 mg tablet 3.125 mg PO BID RF: 0 multivitamin Tablet 1 tab PO DAILY RF: 0 aspirin [Ecotrin Low Strength] 81 mg Tablet,Delayed Release (Dr/Ec) 81 mg PO DAILY RF: 0 pravastatin 20 mg Tablet 20 mg PO QHS RF: 0 coenzyme Q10 [CoQ-10] 100 mg Capsule 100 mg PO DAILY RF: 0 Referrals / Follow Up: Jn Thomas MD [Primary Care Provider] - Within 2 Weeks Disposition Disposition (needs filled in before D/C Order can be placed): Home Health Service Charges/Coding Visit Charges Inpatient E&M: 46573 Disch Hosp
[2021-03-16] MEDS: Acetaminophen 325 MG Tablet 650 MG PO (12:13)
--- NOTE | 2021-03-16 12:19 | CASEMGMT ---
TC to Yaneth at [facility], aware pt is being dc'd today. Referral faxed to [facility] as pt qualifies for home O2. TC to Aminah to make aware of referral.
--- NOTE | 2021-03-17 15:44 | CASEMGMT ---
RN CM Discharge Follow Up Phone Call: JANAY: Yessi Strata:2 Call Date: 03/17/21 Discharge Date: 03/16/21 Time of Call:1540 Duration:3 min Admitting Dx:debility due to COVID 19 RENE CM completed follow up phone call after recent hospitalization. Pt states he is doing wonderful. He states he has been up and showered and feeling good. HHC started today. His friend's dtr picked up his rx for him. Pt has not yet made his follow up appts, encouraged to do so. Pt states his pulse ox is 87%. He states he did not take the oxygen. He feels he didn't need it, his ears and nose were sore from the tubing. Encouraged pt to accept the O2, he states he will not. He is aware to call his PCP if he changes his mind or the squad for urgent needs. Pt aware of isolation guidelines and denies further questions. Aminah from [facility] notified this RN CM that pt declined O2 as well.
== END 2021-03-16 12:55 | disposition home health service (06) | DRG 177 ==
LOC: ED 21:59 → MS3 22:12
PROVIDERS: Family Medicine; Admitting Provider Hospitalist; Emergency Provider Emergency Medicine; PCP Internal Medicine; Visit Provider Student in an Organized Health Care Education/Training Program
DX: U07.1 COVID-19 (principal); J96.01 Acute respiratory failure with hypoxia; J12.82 Pneumonia due to coronavirus disease 2019; E22.2 Syndrome of inappropriate secretion of antidiuretic hormone; R53.81 Other malaise; I10 Essential (primary) hypertension; Z87.891 Personal history of nicotine dependence
CPT/HCPCS: 36415; 71045; 71275; 80048; 80076; 84484; 85025; 85379; 87426; 93005; 97110; 97162; 97166; 97530; 97535; 97802; 99251; 99285; J7030; Q9967; A4216; G0463; J1940

== ENCOUNTER 2021-07-26 08:54 | Outpatient (CLI) | payer MEDICARE, SELFPAY ==
--- NOTE | 2021-07-26 09:20 | RAD_ITS ---
STUDY: X-RAY - RIGHT KNEE REASON FOR EXAM: Male, 85 years old. Knee pain. TECHNIQUE: 2 view(s) of the knee. COMPARISON: None. FINDINGS: Osteopenia. Moderate arthrosis of the medial compartment with osteophyte formation. Mild arthrosis of the lateral compartment. Mild arthrosis of the patellofemoral compartment. Vascular calcification. RAD/Knee 1 or 2 Views IMPRESSION: Osteopenia with tricompartmental arthrosis as described. No acute abnormality, chondrocalcinosis, erosive changes or periostitis. Electronically Signed: Aravind Taylor MD at 9:53 EST ,
== END 2021-07-26 23:59 | disposition home or self-care (01) ==
LOC: RAD 08:57
PROVIDERS: PCP Internal Medicine; Referring Provider Anesthesiology Pain Medicine; Visit Provider Anesthesiology Pain Medicine
DX: M25.561 Pain in right knee (principal)
CPT/HCPCS: 73560

== ENCOUNTER → 2021-09-17 | Outpatient (CLI) | payer MEDICARE, SELFPAY ==
--- NOTE | 2021-09-17 18:15 | MRI_ITS ---
STUDY: MRI LUMBAR SPINE WITHOUT CONTRAST REASON FOR EXAM: Male, 86 years old. RADICULOPATHY, LUMBAR REGION TECHNIQUE: Standardized fat and water weighted pulse sequences were obtained in the sagittal and axial planes. COMPARISON: Lumbar spine radiographs 05/04/2020. FINDINGS: T10-T11: (Sagittal only). Normal endplates. Mild disc space height narrowing. No ventral extra dural defect. Normal central canal. The intervertebral neural foramina are barely included and suboptimal for evaluation. T11-T12: (Sagittal only). Schmorl''s nodes in the vertebral endplates. Moderate disc space height narrowing. Mild ventral extra dural defect due to posterior inferior spurring of T11 vertebral body. Normal central canal and bilateral intervertebral neural foramina. T12-L1: (Sagittal only). Normal endplates. Pronounced disc space height narrowing. Normal central canal and bilateral intervertebral neural foramina. Normal lumbar lordosis. There is no substantial scoliosis. Normal conus medullaris that terminates at the lower T12 vertebral body level. L1-2: Normal endplates. Pronounced disc space height narrowing. Mild degenerative retrolisthesis of L1 on L2. Mild bilateral degenerative facet arthropathy with widening of the facet joints. Mild central canal stenosis with an AP canal diameter 10.5 mm. Normal bilateral lateral recesses. Normal bilateral intervertebral neural foramina. L2-3: Normal endplates. Moderate disc space height narrowing. Mild degenerative retrolisthesis of L3 on L4. Mild bilateral degenerative facet arthropathy with widening of the facet joints. Mild central canal stenosis with an AP canal diameter of 9.2 mm. Normal bilateral lateral recesses. Normal bilateral intervertebral neural foramina. L3-4: MODIC type II degenerative vertebral marrow fatty changes underneath the vertebral endplates. Moderate disc space height narrowing. Minimal degenerative retrolisthesis of L3 on L4. Mild to moderate left degenerative facet arthropathy. Mild right degenerative facet arthropathy. Normal central canal and bilateral lateral recesses. Mild stenosis of the left intervertebral neural foramen. Normal right intervertebral neural foramen. L4-5: Minimal MODIC type II degenerative vertebral marrow fatty changes underneath the vertebral endplates. Schmorl''s node in the central L4 inferior endplate. Mild disc space height narrowing. Moderate left degenerative facet arthropathy. Mild right degenerative facet arthropathy. Mild central canal stenosis with an AP canal diameter 10 mm. Mild stenosis of the left lateral recess. Normal right lateral recess. Moderate stenosis of the left intervertebral neural foramen with impingement of the left L4 nerve. Mild stenosis of the right intervertebral neural foramen. L5-S1: Pronounced L5-S1 disc space height narrowing. Nearly grade 2 anterolisthesis of L5 on S1. Bilateral L5 pars defects. Normal central canal and bilateral lateral recesses. Moderate stenosis of the bilateral intervertebral neural foramina. Normal visualized sacral ala. Normal visualized paraspinous soft tissue structures. MRI/Spine Lumbar (Routine) IMPRESSION: 1. Nearly grade 2 anterolisthesis of L5 on S1, pronounced L5-S1 disc space height narrowing, bilateral L5 pars defects and moderate stenosis of the bilateral intervertebral neural foramina. 2. Moderate stenosis of the left L4-L5 intervertebral neural foramen with suspicious impingement of the left L4 nerve, mild central canal stenosis with an AP canal diameter 10 mm and moderate left degenerative facet arthropathy. 3. Minimal degenerative retrolisthesis of L3 on L4 and mild stenosis of the left L3-L4 intervertebral neural foramen. 4. Mild degenerative retrolisthesis of L2 on L3 and mild central canal stenosis with an AP canal diameter of 9.2 mm. 5. Mild degenerative retrolisthesis of L1 on L2 and mild central canal stenosis with an AP canal diameter 10.5 mm. 6. No MRI evidence of lumbar extruded disc fragment. Electronically Signed: Kojo Hines MD at 16:04 EDT ,
== END | disposition home or self-care (01) ==
PROVIDERS: PCP Internal Medicine; Referring Provider Anesthesiology Pain Medicine; Visit Provider Anesthesiology Pain Medicine
DX: M54.16 Radiculopathy, lumbar region (principal)
CPT/HCPCS: 72148

== ENCOUNTER 2022-04-20 10:00 | Outpatient (RCR) | payer MEDICARE, SELFPAY ==
--- NOTE | 2022-03-30 13:19 | HP.PTEVAL_ITS ---
Patient's Visit Information FRAGOSO Sharath WINN is a 86 year old M referred to Physical Therapy by LEROY Ramirez with a diagnosis of LUMBOSACRAL DDD, RADICULITIS, STENOSIS, SPONDYLOSIS, FACET ARTH AND HIP OA.. Date of Evaluation: 03/30/22 Physical Therapist: Yaneth Dangelo, PT, Cert MDT - Visit Plan Frequency: 2-3x /Week Duration: 4-6 Weeks Plan: GAIT AND BALANCE TRAINING. POSTURE CORRECTION/STRENGTHENING, INSTRUCTION IN APPROPRIATE BODY MECHANICS AND ACTIVITY MODIFICATIONS. DLS WITH NEUTRAL SPINE. NO LUMBAR EXTENSION. MADISON LE ROM, STRETCHING AND STRENGTHENING. HEP INSTRUCTION. - Subjective Present symptoms: LOW BACK PAIN ABOUT BELT HIGH WITH STANDING AND WALKING AND CAN ONLY PUSH THROUGH IT TO A CERTAIN EXTENT. RIGHT HIP, THIGH AND LEG PAIN AND NUMBNESS TO THE ANKLE. INTERMITTENT SHOOTING PAINS DOWN LEG TO ANKLE AND SOMETIMES CAUSES KNEE TO BUCKLE. Present since: ABOUT 2 YEARS. HAD TO START USING A CANE AFTER HAVING COVID ABOUT A YEAR AGO. Pain Scale: WORST 7/10, LEAST 0/10. Currently: 0/10. Is it getting better, worse or staying the same: GETTING WORSE BECAUSE CAN'T BE ACTIVE BECAUSE OF THE PAIN. Commenced as a result of: 1978 WORK INJURY TO BACK - SLIPPED AND FELL ON [facility]. Worse: RISING FROM SITTING. INITIATING GAIT AFTER SITTING X APPROX 100 FEET THEN THE PAIN USUALLY GOES AWAY. PROLONGED STANDING AND WALKING CAUSE LOW BACK ACHE. SITTING IN A FOLDING. Better: CHANGE OF POSITION. Disturbed sleep: NO. SLEEPING IN A RECLINER X 14 YEARS. Previous history/Previous treatment: MAY 07 2021 GOT LESTER FOR SCIATICA AND IT HELPED. TRIED LESTER'S IN SPRING 2021 ALSO BUT THEY DID NOT HELP. RECEIVED A R KNEE INJECTION BY DR. LOPEZ WHICH HELPED. ALSO TRIED AN INJECTION BY DR. LOPEZ IN L4 REGION AND DIDN'T HELP. NO BACK SURGERY. CONSULT WITH DR. IZAGUIRRE - BACK SURGERY NOT RECOMMENDED. DR. CHOUDHARY - R HIP INJECTION 3 WKS AGO AND PATIENT REPORTS SOME LASTING EFFECT. Coughing/sneezing/straining: NEGATIVE. Gait: USING CANE IN THE HOUSE AND FWW OUTSIDE OF HOUSE. PATIENT DENIES ANY FALLS. Bowel or Bladder Dysfunction: PATIENT DENIES. Accidents: WORK INJURY IN THE 'S. Unexplained weight loss: NO. Imaging: LUMBAR MRI, R HIP X-RAY, R KNEE X-RAY. PMH/Recent major surgery: 2004 HEART STENTS, H/O BLOOD CLOTS. HTN. - Objective Sitting/Standing Posture: POOR. INCREASED TRUNK FLEXION. Active Correction of posture: WORSE. Other Observations: VERY UE DEPENDENT ON WALKER DURING GAIT. DECREASED CADANCE AND LIMP ON RIGHT LE. DECREASED MADISON STRIDE LENGTH. VERY UE DEPENDENT TO TRANSFER FROM SIT TO STAND. Sensory deficit: MADISON LE LIGHT TOUCH SENSATION GROSSLY INTACT AND SYMMETRICAL. ROM deficit: TIGHT MADISON HIP FLEXORS, HS'S AND GASTROC SOLEUS COMPLEX'S. Motor deficit: MADISON LE'S GROSSLY 5/5 WITH MMT'ING EXCEPT RIGHT HIP 4-/5, KNEE 4/5. Dural Signs: POSITIVE RIGHT LE. Lumbar mvmt loss: flex - MOD. ext - MARIA LUISA. R SG - MARIA LUISA. L SG - MARIA LUISA. PATIENT DENIES INCREASED PAIN WITH LUMBAR ROM TESTING. Core strength: POOR - Balance/Special Test Scores Oswestry Low Back Score: 13 TUG Test Time Seconds: 30.33 30 Second Chair Rise Test Seconds: 4 - Goals Goal 1:: DECREASE C/O LOW BACK AND RIGHT LE SX'S. Goal Time Frame: 4-6 Weeks Goal 2:: IMPROVE RISING FROM SITTING, STANDING AND WALKING FUNCTION Goal Time Frame: 4-6 Weeks Goal 3:: INSTRUCT IN PROPHYLAXIS Goal Time Frame: 4-6 Weeks - Anticipated Interventions Patient/Client Instruction: Educate patient on: Condition, Plan of Care, Risk Factors For the Purpose of:: To improve self management Therapeutic Exercise to Include: Strength training, Body mechanics, Postural training, Flexibilty training, Gait and locomotor training, Neuromotor development, Dynamic Lumbar Stabilization For the Purpose of:: To decrease pain, To increase ROM, To improve muscle performance and motor function, To increase tolerance to activity/condition/ position, To improve ability of physical actions for home/community/work/leisure, To improve gait and locomotor functions Thank you for the opportunity to evaluate your patient. For Medicare and Medicare HMO plans, please review the plan of care and approve it. It will need to be FAXED BACK to us at [phone] for Medicare purposes. For Medicare only, by signing this I certify the plan of care. Please let me know if there are questions or concerns regarding this plan of care. Physician Signature: Date:
--- NOTE | 2022-04-20 10:34 | HP.PTDCSUM_ITS ---
It has been my pleasure to treat FRAGOSO Sharath WINN referred by LEROY Ramirez, with the diagnosis of LUMBOSACRAL DDD, RADICULITIS, STENOSIS, SPONDYLOSIS, FACET ARTH AND HIP OA. for a total of 10 visit(s). Discharge Date: Please see the following information for a summary of their discharge status. Subjective: PATIENT REPORTS HE SAW DR. CHOUDHARY YESTERDAY AND HE IS GOING TO SCHEDULE HIM AN LESTER. HE REPORTS DR. CHOUDHARY ALSO offered REFERRAL TO [facility] FOR R THR BUT PATIENT STATES HE WANTS TO TRY THE LESTER FIRST. PATIENT REPORTS THERPAY HASN'T MADE ANYTHING WORSE BUT IT JUST ISN'T HELPING. PATIENT ALSO REPORTS DR. CHOUDHARY PRESCRIBED PAIN THAT HE STARTED YESTERDAY - NO EFFECT YET. RIGHT HIP Pain Intensity (Out of 10): 5 % Improvement: 0 Objective/Function: PATIENT WAS SEEN TODAY FOR RE-ASSESSMENT OF PROGRESS TOWARD THE SET PT GOALS AND THE NEED FOR FURTHER PHYSICAL THERAPY VS READINESS FOR DISCHARGE. UPON EXAM TODAY PATIENT IS NOT IMPORVING AND HIS FUNCTION IS ACTUALLY WORSENING (SEE TUG AND STS RESULTS BELOW). WILL D/C TO PHYSICIAN FOLLOW UP AND DUE TO LACK OF PROGRESS. PATIENT DID AMBULATE INDEP'LY IN AND OUT OF PT TODAY BUT GAIT IS SLOW, GUARDED AND UNSAFE WITH VERY SHORT STRIDE LENGTH AND LIMP ON RIGHT LE - PATIENT AWARE AND WANTS TO TRY INJECTION BEFORE C ONSIDERING HIP REPLACEMENT. Goal 1:: DECREASE C/O LOW BACK AND RIGHT LE SX'S. Goal Progress: Not Progressing Goal 2:: IMPROVE RISING FROM SITTING, STANDING AND WALKING FUNCTION Goal Progress: Not Progressing Goal 3:: INSTRUCT IN PROPHYLAXIS Goal Progress: Not Progressing Plan: D/C. PATIENT AGREEABLE. If there are questions or concerns regarding this patient's physical therapy, please feel free to call me at [phone]. Thank you for the referral of this patient. Sincerely, Yaneth Dangelo, PT, Cert MDT Balance/Gait/Functional tests - Balance/Special Test Scores Oswestry Low Back Score: 24 TUG Test Time Seconds: 41.22 Tug Test: >30sec.=impaired mobility 30 Second Chair Rise Test Seconds: 4
== END 2022-04-20 19:00 | disposition home or self-care (01) ==
LOC: PT 10:00
PROVIDERS: PCP Internal Medicine; Referring Provider Nurse Practitioner Family; Visit Provider Nurse Practitioner Family
DX: M16.11 Unilateral primary osteoarthritis, right hip (principal); M46.96 Unspecified inflammatory spondylopathy, lumbar region; M51.37 Other intervertebral disc degeneration, lumbosacral region; M54.17 Radiculopathy, lumbosacral region; M48.07 Spinal stenosis, lumbosacral region; M47.817 Spondylosis without myelopathy or radiculopathy, lumbosacral region
CPT/HCPCS: 97110; 97116; 97162; 97164

== ENCOUNTER → 2022-09-13 | Outpatient (CLI) | payer MEDICARE, SELFPAY ==
--- NOTE | 2022-09-13 12:56 | VDLE_ITS ---
Reason For Study: Pain RIGHT LEFT GSV is normal. CFV is compressible, spontaneous, phasic, CFV is compressible, spontaneous, phasic, competent, and demonstrates normal competent and demonstrates normal augmentation. augmentation. FV is compressible, spontaneous, phasic, competent and demonstrates normal augmentation. POP V is compressible, spontaneous, phasic, competent and demonstrates normal augmentation. T/P Trunk is compressible. PTV is compressible. RT PerV is compressible. Procedure This is a venous duplex using B-mode, color flow and spectral Doppler. Exam performed in department. Technically difficult to visualize FV due to edema, appear patent with color. A preliminary report was called and/or faxed to Harpreet ROSENBERG. VL/Venous Duplex US, Unilateral Interpretation Summary There is no evidence of right lower extremity deep vein thrombosis. Right great saphenous vein appears patent and compressible segmentally. Normal flow patterns left common f emoral vein This exam was noted to be technically difficult particularly with imaging of th e right femoral vein. Ordering Physician: Mitchell Mullins Referring Physician: Jn Thomas M.D. Performed By: Mallorie Nam RVT
== END | disposition home or self-care (01) ==
LOC: CVS 12:53
PROVIDERS: PCP Internal Medicine; Referring Provider Physician Assistant Surgical; Visit Provider Physician Assistant Surgical
DX: M79.661 Pain in right lower leg (principal)
CPT/HCPCS: 93971

== ENCOUNTER 2025-03-03 10:47 | Emergency (ER) | payer MEDICARE, SELFPAY ==
[2025-03-03 10:48] VITALS: BP 174/87; PULSE 76; RESP 18; TEMP 36.6; O2SAT 97
--- NOTE | 2025-03-03 11:06 | CT_ITS ---
PROCEDURE: ABDOMEN/PELVIS WITHOUT CONT 03/03/2025 REASON FOR EXAM: PAINLESS HEMATURIA TECHNIQUE: Procedure Code: CTABDPEL Modality: CT Procedure: ABDOMEN/PELVIS WITHOUT CONT Noncontrast technique limits evaluation of the abdominal and pelvic viscera. Coronal and Sagittal reconstruction series were provided. One or more dose reduction techniques were used (e.g., Automated exposure control, adjustment of the mA and/or kV according to patient size, use of iterative reconstruction technique). RADIATION DOSE SUMMARY: CTDlvol: 31.49 mGy DLP: 1486.87 mGycm COMPARISON: None FINDINGS: Lung bases: Minimal linear scarring at the lung bases. Coronary artery calcification. Liver: Normal size. No obvious mass. Gallbladder: The gallbladder is contracted. Multiple gallstones. Spleen: Normal size. Pancreas: Diffuse fatty atrophy. Adrenals: Unremarkable Kidneys: Nonspecific mild degree of bilateral perinephric stranding. No evidence of calcification. No evidence of obstruction. Bladder: There is a 2.2 cm by 1.8 cm soft tissue mass in the anterior aspect of the dome of the urinary bladder. The polypoid lesion should be ruled out. Reproductive Organs: The prostate is not visualized. Bowel: Colonic diverticulosis without diverticulitis. Appendix: The appendix is not identified. There is no inflammatory process identified in the right lower quadrant to suggest appendicitis. Lymph nodes: Unremarkable. Vasculature: Mild diffuse atherosclerotic calcifications are noted. Peritoneum / Retroperitoneum: Unremarkable Bones: Multilevel degenerative changes. 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 Status post right hip replacement. CT/Abdomen/Pelvis without Cont IMPRESSION: Small gallstones. Polypoid bladder mass as described. Reading Location: [id number]
--- NOTE | 2025-03-03 11:07 | EX.ED.DYSGE1 ---
HPI History of Present Illness Chief Complaint: Complaint Narrative Narrative: 89-year-old male presents with hematuria that he had for the last week. He relates history that about a week ago, he started having bright red blood in his urine. He denies any fever or chills, no back pain, no dysuria or burning with urination. He does not take blood thinners but he does take 81 mg of aspirin. He states he followed up with his primary care provider on of last week, 4 days ago. He had an ultrasound performed of his kidneys. He was not supposed to follow-up with a urologist until a month from now, however, he learned of a cancellation and is not supposed to see them for a week from tomorrow. This morning, he states he was able to urinate and it was light yellow in color, but at 9:00, approximately 2 hours ago, he was passing clots and bright red blood again. He denies any other bleeding diathesis. He presents mainly because of continued painless hematuria. [facility] Medical History Acute respiratory failure with hypoxia Wears hearing aid in both ears Hearing loss, left Hearing loss, right Chronic pain Former smoker Coronary artery disease Chest pain Pneumonia due to COVID-19 virus Weakness COVID-19 Hypertension Home Medications ?Medication ?Instructions ?Recorded ?Last Taken ?Type carvedilol 3.125 mg tablet 3.125 mg PO BID hypertension 03/13/21 03/11/21 23:00 History aspirin 81 mg tablet,delayed 81 mg PO DAILY Check with primary 03/15/21 Unknown History release (Ecotrin Low Strength) doctor coenzyme Q10 100 mg capsule 100 mg PO DAILY Check with primary 03/15/21 Unknown History (CoQ-10) doctor multivitamin 1 tab PO DAILY Check with primary 03/15/21 Unknown History doctor Allergy/AdvReac Type Severity Reaction Status Date / Time No Known Allergies Allergy Verified 03/03/25 10:48 Family History Other Dementia Surgical History History of coronary artery stent placement Social History Smoking Status: Former smoker ROS ROS ED ROS Narrative Review of systems positive for hematuria, intermittent x 1 week. Had normal colored urine this morning, but returned at 9 AM. No blood thinners. No fevers or chills, no back pain. No other bleeding diathesis. EXAM Physical Exam Narrative Exam Narrative: Afebrile. Vital signs noted. Nontoxic-appearing. Cardiovascular examination reveals regular rate and rhythm. Lungs are clear to auscultation bilaterally. Abdomen is soft and nontender with positive bowel sounds. No guarding or rebound. Neurological examination nonfocal, nonlateralizing. Const Vital Signs: 03/03/25 10:48 03/03/25 12:19 Temperature 97.9 F 98.3 F Temperature Source Oral Oral Pulse Rate 76 75 Respiratory Rate 18 18 Blood Pressure 174/87 H 150/75 H Blood Pressure Mean 116 100 Pulse Ox 97 95 Oxygen Delivery Method Room Air Room Air MDM MDM MDM Narrative Medical decision making narrative: Differential diagnosis includes but not limited to ureterolithiasis versus cystitis/hemorrhagic cystitis versus bladder mass versus kidney mass. As he is able to urinate currently, I do not feel that he needs bladder irrigation or Luna insertion. CBC will be obtained to rule out anemia requiring transfusion or thrombocytopenia. Additionally BMP will be obtained to check kidney function. Urinalysis will be sent. He was bolused normal saline and CT will be obtained of the abdomen and pelvis. I reviewed his laboratory work and he has a normal white count of 8.6 with hemoglobin normal at 15.1, no anemia, platelet count normal at 179. BMP shows glucose of 122 with a normal anion gap of 11, normal BUN and creatinine. Urinalysis shows 25-50 RBCs with 0-5 WBCs. I do not feel that antibiotics are indicated. I reviewed the radiology report of the CT of the abdomen and pelvis and he has a polypoid lesion of his bladder. At this point in time, upon repeat examination, he is resting comfortably on the cot. He has a urinal full of yellow urine, no gross hematuria. I stressed the importance of follow-up with urology as scheduled. I did offer to refer him to a local urologist, but he declined. At this point in time, as he is not having urinary retention, I do not feel Luna catheter is indicated. He was told that he will most likely require cystoscopy and biopsy of the polypoid mass. Return instructions to the emergency department were reviewed. Disposition is discharged home in stable condition. History & Record Review Discussion w/independent historian: Patient and Friend (Daughter of significant other) Additional record(s) reviewed:: Prior ED visit (Has not been seen in the ED since 2020) Lab Data Attestation: I reviewed the patient's lab results. Labs: Laboratory Results - last 24 hr 03/03/25 03/03/25 11:15 11:54 WBC 8.6 RBC 4.73 Hgb 15.1 Hct 44.7 MCV 94.5 H MCH 31.9 MCHC 33.8 RDW Std Deviation 50.6 H RDW Coeff of [place] 14.6 Plt Count 179 MPV 10.7 Immature Gran % (Auto) 0.600 Neut % (Auto) 71.0 H Lymph % (Auto) 18.5 L Green % (Auto) 7.4 Eos % (Auto) 2.3 Baso % (Auto) 0.2 Absolute Neuts (auto) 6.1 Absolute Lymphs (auto) 1.60 Nucleated RBC % 0 Sodium 135 Potassium 4.7 Chloride 100 Carbon Dioxide 23.5 Anion Gap 11 BUN 16 Creatinine 0.87 Estim Creat Clear Calc 75.22 Est GFR (MDRD) Non-Af 83 BUN/Creatinine Ratio 18.0 Glucose 122 H Calcium 9.3 Urine Color Yellow Urine Clarity Clear Urine pH 6.0 Ur Specific [place] 1.010 Urine Protein 30 H Urine Glucose (UA) Normal Urine Ketones Negative Urine Occult Blood 250 H Urine Nitrite Negative Urine Bilirubin Negative Urine Urobilinogen Normal Ur Leukocyte Esterase 100 H Urine RBC 25-50 SEEN Urine WBC 0-5 SEEN Ur Squamous Epith Cells 0 SEEN Urine Bacteria RARE Urine Mucus 0 SEEN Radiography Diagnostic Testing: Clinical Impression(s) from Imaging Studies Abdomen/Pelvis CT 03/03/25 11:06 IMPRESSION: Small gallstones. Polypoid bladder mass as described. Reading Location: [id number] Discharge Plan Triage Chief Complaint: Complaint ED Provider: Kojo Santillan Dx/Rx/DC Orders Clinical Impression: Hematuria, Bladder mass Instructions: Anatomy of the Male Urinary Tract, ED Hematuria Prescriptions: No Action carvedilol 3.125 mg tablet 3.125 mg PO BID Patient Comments: TAKE 1 TABLET BY MOUTH TWICE DAILY multivitamin Tablet 1 tab PO DAILY aspirin [Ecotrin Low Strength] 81 mg Tablet,Delayed Release (Dr/Ec) 81 mg PO DAILY coenzyme Q10 [CoQ-10] 100 mg Capsule 100 mg PO DAILY Primary Care Provider: Jn Thomas Referrals: Jn Thomas MD [Primary Care Provider, Internal Medicine] Activity Restrictions/Additional Instructions: Follow-up with your urologist as scheduled a week from tomorrow. Return to the emergency department with inability to urinate, new or worsening symptoms. On your CT, you are found to have a bladder mass. This needs further investigation by urology. Print Language: Iranian Disposition Disposition: Home, Self Care
[2025-03-03] MEDS: 0.9% Normal Saline (1000mL) 1,000 ML 999 ML IV (11:19)
[2025-03-03 11:20] VITALS: BMI 38.4
[2025-03-03 11:23] LABS: Hematocrit 44.7 % (40-54); Hemoglobin 15.1 g/dL (13.0-16.5); Immature Granulocytes Count 0.050 X10^3/uL (0.0-0.0); Mean Corp Hgb Conc 33.8 g/dL (32-36); Mean Corpuscular Volume 94.5 fL (80-94); Mean Platelet Vol. 10.7 fl (6.2-12.0); NRBC Flagged by Analyzer 0 % (0-5); Platelet Count 179 K/mm3 (150-450); RBC Distribution Width CV 14.6 % (11.6-14.6); RBC Distribution Width SD 50.6 fl (35.1-43.9); Red Blood Count 4.73 M/mm3 (4.6-6.2); White Blood Count 8.6 K/mm3 (4.4-11.0)
[2025-03-03 11:45] LABS: Anion Gap 11 (5-15); BUN 16 mg/dL (4-19); BUN/Creat Ratio 18.0 RATIO (10-20); Calcium,Total 9.3 mg/dL (7.6-11.0); Carbon Dioxide 23.5 mmol/L (21.0-32.0); Chloride 100 mmol/L (98-108); Estimated Creatinine Clearance 75.22 ml/min (50-250); Glucose 122 mg/dL (70-99); Potassium 4.7 mmol/L (3.3-5.1)
[2025-03-03 12:05] LABS: Mucous, Urine 0 SEEN /hpf (<or=2+); Squamous Epithelial Cells - UA 0 SEEN /hpf (0-5)
[2025-03-03 12:19] VITALS: BP 150/75; PULSE 75; RESP 18; TEMP 36.8; O2SAT 95
[2025-03-03 12:20] LABS: Color, Urine Yellow (Yellow); Glucose, Dipstick Normal (Normal); Ketone-Dipstick Negative (Negative); Leukocyte Esterase-Dipstick 100 /ul (Negative); Nitrite-Dipstick Negative (Negative); Occult Blood-Urine 250 /ul (Negative); Protein-Dipstick 30 mg/dl (Negative); Specific Gravity, Urine 1.010 (1.002-1.030); Urine Bilirubin Dipstick Negative (Negative)
[2025-03-03 12:22] LABS: Red Blood Cells-Urine 25-50 SEEN /hpf (0-5)
== END 2025-03-03 13:44 | disposition home or self-care (01) ==
PROVIDERS: Emergency Provider Emergency Medicine; PCP Internal Medicine; Visit Provider Emergency Medicine
DX: R31.9 Hematuria, unspecified (principal); N32.9 Bladder disorder, unspecified; Z87.891 Personal history of nicotine dependence; I25.10 Atherosclerotic heart disease of native coronary artery without angina pectoris; Z79.82 Long term (current) use of aspirin; I10 Essential (primary) hypertension
CPT/HCPCS: 74176; 80048; 81001; 85025; 87086; 87088; 96360; 99283